=== PATIENT | male | born 1980 | race Caucasian/White ===

== ENCOUNTER → 2016-12-29 | Outpatient (CLI) | payer BC | LOC: ULTRA 09:15 | DX: R79.89 Other specified abnormal findings of blood chemistry (principal) ==

== ENCOUNTER → 2020-01-01 | Outpatient (CLI) | payer BC ==
[2020-01-01 09:50] VITALS: BP 107/67
[2020-01-01 09:52] VITALS: BP 118/72
--- NOTE | 2020-01-01 16:27 | NUR ---
PT HERE TODAY FOR ACTH STIM TEST (COSYNTROPIN STIMULATION TEST). TEST WAS ATTEMPTED LAST WEEK BUT BLOOD COLLECTED INTO INCORRECT SPECIMEN TUBE SO TEST COULD NOT BE RUN. PT NOTIFIED, RETURNED TODAY. TEST PERFORMED ORDERED, BASELINE CORTISONE LEVEL DRAWN, COSYNTROPIN ADMINISTERED, 30MIN AND 60 MIN POST SPECIMENS DRAWN. PT TOLERATED WITHOUT INCIDENT. PT DID REPORT LAST COUPLE DAYS FEELING OFF OCCASIONALLY WHEN FIRST STANDS UP. CHECKED ORTHOSTATIC BP BUT NO DROP IN PRESSURE. PT STATES THAT HE DOES NOT FEEL THAT WAY TODAY. ENCOURAGED PT TO NOTIFY HIS PHYSICIAN IF THIS CONTINUES DR. THOMPSON HAS ADDED A NEW MEDICATION FOR HIM (PT CANNOT RECALL THE NAME). PT DISMISSED IN STABLE CONDITION POST COMPLETION OF TEST.
[2020-01-02 09:08] LABS: CORTISOL 30 MIN 19.4 ug/dL (Not Estab.); CORTISOL 60 MIN 20.6 ug/dL (Not Estab.); CORTISOL BASELINE 10.2 ug/dL (())
== END ==
LOC: OPONC 09:29
PROVIDERS: ATTEND Internal Medicine
DX: E27.40 Unspecified adrenocortical insufficiency (principal)
CPT/HCPCS: 95113

== ENCOUNTER → 2020-12-31 | Outpatient (CLI) | payer BC | LOC: ULTRA 08:36 | PROVIDERS: ATTEND Family Medicine | DX: K76.0 Fatty (change of) liver, not elsewhere classified (principal); R79.89 Other specified abnormal findings of blood chemistry ==